=== PATIENT | male | born 1980 | race Caucasian/White ===

== ENCOUNTER 2017-05-14 13:37 | Inpatient (IN) | payer MEDICAID ==
[~2017-05-14] VITALS: Ht 182.9 cm; Wt 110.0 kg
[~2017-05-14 13:37] MED LIST: ATIVAN1 MG PO; BUS10 PO; CLINDAMYCIN HC300 MG PO; LAC PO; LEVAQUIN750 MG PO; PER5 PO; STOOL SOFTENER100 MG PO
[2017-05-14 14:39] LABS: BASOPHIL % 0.6 % (0-2)
[2017-05-14 14:44] LABS: PLATELET COUNT 489 x10^3mcL (130-400)
[2017-05-14 14:54] LABS: CARBON DIOXIDE 21.6 mmol/L (21-32); CHLORIDE SERUM 99 mmol/L (98-107); CREATININE SERUM 0.9 mg/dL (0.7-1.3); GFR1 > 60 mL/min; GLUCOSE SERUM 132 mg/dL (74-106); POTASSIUM SERUM 3.9 mmol/L (3.5-5.1); SODIUM SERUM 139 mmol/L (136-145)
[2017-05-14 14:59] LABS: ALBUMIN 4.5 g/dL (3.4-5.0); ALKALINE PHOSPHATASE 96 U/L (46-116); ALT/SGPT 213 U/L (16-63); AST/SGOT 245 U/L (15-37); BILIRUBIN TOTAL 2.31 mg/dL (0.20-1.00); LIPASE 137 IU/L (73-393)
[2017-05-14 15:00] LABS: TOTAL PROTEIN, SERUM 8.9 g/dL (6.4-8.2)
[2017-05-14 17:58] LABS: AMPHETAMINE QUAL UR NONE DETECTED (NEG <=1000)
[2017-05-14 18:08] LABS: FREE T4 1.17 ng/dL (0.76-1.46)
[2017-05-14 20:32] LABS: MAGNESIUM 2.6 mg/dL (1.8-2.4); PHOSPHOROUS 3.7 mg/dL (2.5-4.9)
[2017-05-14 20:33] LABS: CHOLESTEROL/HDL RATIO 1.6
[2017-05-14 20:43] LABS: CALCIUM 7.3 mg/dL (8.5-10.1); CHLORIDE SERUM 103 mmol/L (98-107); CREATININE SERUM 0.9 mg/dL (0.7-1.3); GFR1 > 60 mL/min; GLUCOSE SERUM 136 mg/dL (74-106); POTASSIUM SERUM 4.5 mmol/L (3.5-5.1); SODIUM SERUM 139 mmol/L (136-145)
[2017-05-14 20:45] VITALS: BP 119/84
[2017-05-14 21:34] LABS: microscopic required? YES
[2017-05-14 21:44] LABS: urine erythrocyte TRACE (NEGATIVE)
[2017-05-15 08:55] LABS: CALCIUM 7.5 mg/dL (8.5-10.1); CARBON DIOXIDE 27.9 mmol/L (21-32); CHLORIDE SERUM 100 mmol/L (98-107); CREATININE SERUM 0.8 mg/dL (0.7-1.3); GFR1 > 60 mL/min; MAGNESIUM 1.9 mg/dL (1.8-2.4); POTASSIUM SERUM 4.1 mmol/L (3.5-5.1); SODIUM SERUM 136 mmol/L (136-145)
[2017-05-15 08:59] LABS: BASOPHIL % 0.2 % (0-2); PLATELET COUNT 285 x10^3mcL (130-400); RED CELL DISTRIBUTION WIDTH 12.5 % (11.5-14.5)
[2017-05-15 11:16] LABS: GLUCOSE SERUM 107 mg/dL (74-106)
[2017-05-15 14:37] VITALS: BP 121/76
[2017-05-15 16:41] VITALS: BP 138/81
[2017-05-15 18:38] VITALS: BP 138/81
[2017-05-15] MEDS ORDERED: ATIVAN1 MG PO (21:40)
== END 2017-05-15 20:24 | disposition home or self-care (01) | DRG 773 ==
LOC: ED 13:37 → DU 19:12
PROVIDERS: Emergency Medicine; ADMIT Family Medicine
DX: F10.229 Alcohol dependence with intoxication, unspecified (principal); F11.23 Opioid dependence with withdrawal; N17.0 Acute kidney failure with tubular necrosis; G92 Toxic encephalopathy; F10.239 Alcohol dependence with withdrawal, unspecified; E86.0 Dehydration; E83.51 Hypocalcemia; E83.41 Hypermagnesemia; R74.0 Nonspecific elevation of levels of transaminase and lactic acid dehydrogenase [LDH]; E78.1 Pure hyperglyceridemia; E66.9 Obesity, unspecified; T51.0X1A Toxic effect of ethanol, accidental (unintentional), initial encounter; Z68.32 Body mass index [BMI] 32.0-32.9, adult; T40.0X5A Adverse effect of opium, initial encounter; Y92.018 Other place in single-family (private) house as the place of occurrence of the external cause
CPT/HCPCS: 84439; 85378; C9113; G0480; J0696; J2060; J2270; J2405; J2543; J3010; J3490; J7030; Q9967

== ENCOUNTER 2017-06-08 17:31 | Emergency (ER) | payer MEDICAID ==
[2017-06-08 19:57] VITALS: BP 135/80
== END 2017-06-08 19:57 | disposition home or self-care (01) ==
LOC: ED 17:31
DX: M54.5 Low back pain (principal); F41.9 Anxiety disorder, unspecified; F10.10 Alcohol abuse, uncomplicated; Z79.891 Long term (current) use of opiate analgesic; Z79.899 Other long term (current) drug therapy
CPT/HCPCS: J2550; J3010

== ENCOUNTER 2017-06-26 12:00 | Inpatient (IN) | payer MEDICAID ==
[~2017-06-26] VITALS: Ht 182.9 cm; Wt 108.9 kg
--- NOTE | 2017-06-26 12:17 | NUR ---
PATIENT BIB [facility] AFTER PATIENT ADMITTED TO [facility] HE WANTED TO DRINK HIMSELF TO . PATIENT DENIES SUICIDAL IDEATION AT THIS TIME AND STATES HE JUST WANTS TO FEEL BETTER. PATIENT ADMITES TO DRINKING LARGE AMOUNT OF BEER EARLY THIS MORNING. PATIENT ALSO C/O RIGHT KNEE PAIN. HE IS A/O X4 JUST SLOW TO RESPOND. ABLE TO FOLLOW COMMANDS. RESPIRATIONS ARE EQUAL AND SMMETRICAL. NO SIGNS OF DISTRESS. GURNEY TO LOWEST POSITION, SIDE RAILS UP AND CALL LIGHT WITHIN REACH. WILL CONTINUE TO MONITOR.
--- NOTE | 2017-06-26 12:22 | NUR ---
DR. RUIZ AT BEDSIDE TO ASSESS PATIENT.
--- NOTE | 2017-06-26 12:43 | NUR ---
PT BELONGINGS IN RADIO ROOM IN A BAG WITH A LABEL
[2017-06-26 12:51] LABS: BASOPHIL % 0.4 % (0-2); RED CELL DISTRIBUTION WIDTH 13.7 % (11.5-14.5)
[2017-06-26 12:58] LABS: PLATELET COUNT 538 x10^3mcL (130-400)
[2017-06-26 13:24] LABS: CALCIUM 8.6 mg/dL (8.5-10.1); CARBON DIOXIDE 28.3 mmol/L (21-32); CHLORIDE SERUM 102 mmol/L (98-107); CREATININE SERUM 0.9 mg/dL (0.7-1.3); GFR1 > 60 mL/min; GLUCOSE SERUM 134 mg/dL (74-106); POTASSIUM SERUM 3.9 mmol/L (3.5-5.1); SODIUM SERUM 140 mmol/L (136-145)
[2017-06-26 13:30] LABS: ALBUMIN 4.3 g/dL (3.4-5.0); ALKALINE PHOSPHATASE 84 U/L (46-116); ALT/SGPT 41 U/L (16-63); AST/SGOT 34 U/L (15-37); BILIRUBIN TOTAL 0.83 mg/dL (0.20-1.00); CHOLESTEROL 227 mg/dL (<200); TOTAL PROTEIN, SERUM 8.9 g/dL (6.4-8.2)
--- NOTE | 2017-06-26 14:48 | NUR ---
PT VERY ANXIOUS, AGITATED, NAUSOUS AND REPORTS PAIN OF 9/10. PT ASKED TO GIVE URINE SAMPLE PRIOR TO ADMIN OF ANY MEDS. PT IS ATTEMPTING TO URINATE NOW
[2017-06-26] MEDS ORDERED: METFORMIN500 M1 PO (14:54)
[2017-06-26] MEDS ORDERED: BUSPIRONE15 M1 PO (14:54)
[2017-06-26] MEDS ORDERED: HYDROXYZINE50 M1 PO (14:55)
--- NOTE | 2017-06-26 15:03 | NUR ---
PT MEDICATED PER MD ORDERS FOR AGITATION
--- NOTE | 2017-06-26 15:15 | NUR ---
PER DR DEMARCO PT OK TO BE TRANSFERED UPSTAIRS WITHOUT URINE.
--- NOTE | 2017-06-26 15:15 | NUR ---
PT MEDICATED PER MD ORDERS FOR PAIN
--- NOTE | 2017-06-26 15:35 | NUR ---
REPORT GIVEN TO FRANTZ ROSARIO FOR ADMISSION TO TELE. ALL QUESTIONS AND CONCERNS ADDRESSED.
[2017-06-26 15:56] LABS: MAGNESIUM 2.7 mg/dL (1.8-2.4); PHOSPHOROUS 3.2 mg/dL (2.5-4.9)
--- NOTE | 2017-06-26 16:00 | NUR ---
CLIENT IS ALERT AND ORIENTED X4. PATIENT IS ANXIOUS, 1 MG ATIVAN PO GIVEN TO REDUCE SYMPTOMS. RIGHT KNEE SWELLING HAS BEEN NOTED AND CLAIMS TO HAVE INJURED IT WHILE WORKING. PT. IS COOPERATIVE AND FRIENDLY TO STAFF. BED ON THE LOWEST POSITION, CALL LIGHT WITHIN REACH, ROOM FREE OF CLUTTER, AND 1:1 SITTER HAS BEEN INDICATED TO ENSURE SAFETY OF STAFF AND HIMSELF.
[2017-06-26 16:01] VITALS: BP 137/85
[2017-06-26 16:06] LABS: FREE T4 0.97 ng/dL (0.76-1.46); FREE THYROXINE INDEX 3.2 ug/dL (1.4-4.5); T4(THYROXINE) 8.6 ug/dL (4.7-13.3)
--- NOTE | 2017-06-26 16:08 | NUR ---
RECEIVED PT FROM ED VIA [facility]. ORIENTED PT TO ROOM AND SURROUNDINGS. IV NOTED TO LAC PATENT ADN INTACT. TELE 18 PLACED ON PT READING NSR. ISNTRUCTED PT ON THE USE OF CALL LIGHT FOR ASSISTANCE .ENDORSED PT TO PRIMARY NURSE ABKAR
[2017-06-26 16:14] LABS: T3 TOTAL 0.78 ng/mL
--- NOTE | 2017-06-26 17:54 | NUR ---
OBSERVED CLIENT EATING AND WATCHING TV COMFORTABLY. 1:1 SITTER AT BEDSIDE. ROOM FREE OF CLUTTER, BED IN THE LOWEST POSITION, AND CALL LIGHT WITHIN REACH TO ENSURE SAFETY.
--- NOTE | 2017-06-26 18:43 | NUR ---
ENTERED PTS ROOM, PT APPEARD AGGITATED, SPEAKING FAST, AND JITTERY. PT BEGAN ASKING FOR ATIVAN. HR ELEVATED. WILL ADMINSTER PRN ATIVAN.
--- NOTE | 2017-06-26 19:30 | NUR ---
PT AWAKE AND ALERT. AOX4. VERBAL WITH CLEAR SPEECH. NO S/S OF RESPIRATORY DISTRESS NOTED ON ROOM AIR. LUNGS CLEAR BILATERALLY, DIMINISHED TO BASES. DENIES ANY SOB. BOWEL SOUNDS ACTIVE. ABD SOFT AND FLAT. SKIN WARM AND DRY. IV TO LEFT AC PATENT AND INTACT. NO S/S OF INFECTION NOTED. IV NS INFUSING WELL. NOTED SWELLING TO RIGHT KNEE. NO PITTING EDEMA NOTED. PULSES PALPABLE. NO S/S OF DISTRESS NOTED AT THIS TIME. CALM AND COOPERATIVE. SCDS IN PLACE. SITTER AT BEDSIDE. CALL LIGHT WITHIN REACH. WILL CONTINUE TO MONITOR.
--- NOTE | 2017-06-26 20:23 | NUR ---
RECEIVED CRITICAL LAB LACTIC ACID 3.1. DR. JONES NOTIFIED AND AWARE.
--- NOTE | 2017-06-26 21:50 | NUR ---
PT C/O 9/10 RIGHT KNEE PAIN. PRN NORCO 7.5 MG PO GIVEN. WILL CONTINUE TO MONITOR.
[2017-06-26 22:48] VITALS: BP 110/77
--- NOTE | 2017-06-26 23:20 | NUR ---
PT STATES STILL HAVING PAIN 8/10 TO RIGHT KNEE. STATES NORCO DIDN'T REALLY HELP. PRN MORPHINE 2 MG IVP GIVEN. CALL LIGHT WITHIN REACH. WILL CONTINUE TO MONITOR.
[2017-06-26 23:54] LABS: UA SPECIFIC GRAVITY 1.025 (1.005-1.035); microscopic required? YES; urine erythrocyte TRACE (NEGATIVE)
[2017-06-27 00:05] LABS: AMPHETAMINE QUAL UR NONE DETECTED (NEG <=1000)
--- NOTE | 2017-06-27 00:40 | NUR ---
PT RESTING IN BED WITH EYES CLOSED. BREATHING EQUAL AND UNLABORED. NO S/S OF RESPIRATORY DISTRESS NOTED. IV PATENT AND INFUSING WELL. RESTING COMFORTABLY WITH RELAXED FACIAL FEATURES. CALL LIGHT WITHIN REACH. SITTER AT BEDSIDE. WILL CONTINUE TO MONITOR.
--- NOTE | 2017-06-27 00:51 | NUR ---
RECEIVE CRITICAL LAB LACTIC ACID 2.4. DR. JONES NOTIFIED AND AWARE.
--- NOTE | 2017-06-27 03:18 | NUR ---
PT AWAKE AND C/O 8/10 PAIN TO RIGHT KNEE. PRN MORPHINE 2 MG IVP GIVEN. SITTER AT BEDSIDE. CALL LIGHT WITHIN REACH. WILL CONTINUE TO MONITOR.
--- NOTE | 2017-06-27 06:14 | NUR ---
PT SLEPT WELL THROUGH THE NIGHT. AWAKE AND ALERT AT THIS TIME. NO S/S OF RESPIRATORY DISTRESS NOTED. PT C/O 8/10 RIGHT KNEE PAIN. PRN NORCO 7.5 MG PO GIVEN. RECEIVED ROUTINE ATIVAN 1 MG PO. IV PATENT AND INFUSING WELL. CALM AND COOPERATIVE AT THIS TIME. CALL LIGHT WITHIN REACH. WILL CONTINUE TO MONITOR.
[2017-06-27 06:15] LABS: BASOPHIL % 0.7 % (0-2); PLATELET COUNT 400 x10^3mcL (130-400); RED CELL DISTRIBUTION WIDTH 13.8 % (11.5-14.5)
[2017-06-27 06:34] LABS: CALCIUM 8.4 mg/dL (8.5-10.1); CARBON DIOXIDE 28.3 mmol/L (21-32); CHLORIDE SERUM 105 mmol/L (98-107); CREATININE SERUM 0.8 mg/dL (0.7-1.3); GFR1 > 60 mL/min; GLUCOSE SERUM 84 mg/dL (74-106); MAGNESIUM 2.4 mg/dL (1.8-2.4); PHOSPHOROUS 3.7 mg/dL (2.5-4.9); POTASSIUM SERUM 4.6 mmol/L (3.5-5.1); SODIUM SERUM 138 mmol/L (136-145)
--- NOTE | 2017-06-27 07:30 | NUR ---
PATIENT RECEIVED AND SEEN. AT THIS TIME THE PATIENT APPEARS CALM. AAOX3. DENIES WANTING TO HURT HIMSELF OR TO HURT OTHERS. PATIENT IV IS INFUSING PER ORDER AT 150CC/HR. PATIENT HAS SOME SWELLING TO HIS RIGHT KNEE, AND BILATERAL ABRASIONS TO THE INSIDE OF BOTH KNEES, WHICH HE STATES ARE FROM GETTING IN AND OUT OF HIS CAR. SITTER IS AT BEDSIDE FOR SAFETY. CALL LIGHT WITHIN REACH. ALL SAFETY MEASURES IN PLACE. WILL CONTINUE TO MONITOR.
[2017-06-27 09:00] VITALS: BP 124/80
--- NOTE | 2017-06-27 14:00 | NUR ---
PATIENT CONTINUES TO REST IN BED. NO SIGNS OF ACUTE DISTRESS ARE NOTED. RESPIRATIONS EVEN AND UNLABORED. CALL LIGHT WITHIN REACH. SITTER AT BEDSIDE FOR SAFETY.
[2017-06-27 14:30] VITALS: BP 156/91
--- NOTE | 2017-06-27 19:20 | NUR ---
PT A/O X4. TELE #18, NSR, DENIES CHEST PAIN. PULSES PALPABLE, NO EDEMA PRESENT. LUNG SOUNDS CTA, BREATHING FREELY ON RA, DENIES SOB. ABD SOFT AND NONDISTENDED, BOWEL SOUNDS ACTIVE, LBM-06/27. PT VOIDS ADEQUATELY VIA URINAL. GENERALIZED WEAKNESS, AND WEAKNESS TO BILATERAL KNEES. MINOR SWELLING NOTED TO RIGHT KNEE. MULTIPLE SMALL ABRASIONS NOTED TO MEDIAL SIDES OF BILATERAL KNEES, COURTNEY, NO BLEEDING OBSERVED. PT ADMITS TO 8/10 KNEE PAIN, WILL ADMINISTER MEDICATION ORDERED PER MAR. IVF INFUSING WELL TO LAC, NS @ 150 ML/HR. PT DENIES SUICIDAL IDEATION; PT DENIES THOUGHTS OF HURTING SELF AND OTHERS. BED IN LOWEST SETTING, SIDE RAILS UP X2, SEIZURE PRECAUTIONS IN PLACE, CALL LIGHT WITHIN REACH. WILL CONTINUE TO MONITOR.
--- NOTE | 2017-06-27 19:30 | NUR ---
REPORT GIVEN TO [facility] NURSE. AT THIS TIME THE PATIENT IS RESTING IN BED. NO SIGNS OF ACUTE DISTRESS ARE NOTED. RESPIRATIONS EVEN AND [id number] ON ROOM AIR. IV INFUSING PER ORDER, PATENT AND WNL. SCDS IN PLACE. CALL LIGHT WITHIN REACH.
--- NOTE | 2017-06-27 20:59 | NUR ---
PT COMPLAINING OF 8/10 BILATERAL KNEE PAIN. ADMINISTERED MORPHINE ORDERED. WILL MONITOR FOR PAIN RELIEF.
[2017-06-27 22:53] VITALS: BP 137/94
--- NOTE | 2017-06-28 02:14 | NUR ---
PT SLEEPING AT THIS TIME AND CAN BE HEARD SNORING. BREATHING IS EVEN AND UNLABORED. NO RESP DISTRESS NOTED, NO SIGNS OF PAIN OBSERVED. IVF INFUSING WELL. WILL CONTINUE TO MONITOR.
--- NOTE | 2017-06-28 04:47 | NUR ---
PT COMPLAINING OF 8/10 PAIN TO RIGHT KNEE. ADMINISTERED MORPHINE ORDERED, WILL MONITOR FOR PAIN RELIEF.
[2017-06-28 05:11] VITALS: BP 142/88
--- NOTE | 2017-06-28 06:10 | NUR ---
PT SLEPT WELL THROUGHOUT THE EVENING. NO DISTRESS OBSERVED, PT REPORTS 6/10 KNEE PAIN AFTER MORPHINE ADMINISTERED. NO SEIZURES NOTED DURING SHIFT; SEIZURE PRECAUTIONS MAINTAINED. IVF INFUSING WELL. WILL ENDORSE CARE TO AM NURSE.
[2017-06-28 06:23] LABS: BASOPHIL % 0.6 % (0-2); PLATELET COUNT 385 x10^3mcL (130-400)
--- NOTE | 2017-06-28 07:30 | NUR ---
PT IS SLEEPING BUT EASILY AROUSABLE TO VERBAL STIMULUS; NO SOB AT RA. OX4. DENIES SUICIDAL IDEATION OR VISUAL/AUDITORY HALLUCINATIONS. IVF ONGOING ORDERED. LAC SITE PATENT AND WITHOUT INFILTRATION. PT IS CALM AND COOPERATIVE AT THIS TIME. FALL AND SAFETY PRECAUTION REINFORCED. WILL CONTINUE TO MONITOR STATUS.
[2017-06-28 10:18] VITALS: BP 129/84
--- NOTE | 2017-06-28 11:50 | NUR ---
0825-PT REPORTS RT KNEE PAIN 8/10 "ACHING"; MORPHINE IV GIVEN ORDERED.
--- NOTE | 2017-06-28 13:51 | NUR ---
REPORTS RT KNEE PAIN IS 8 OR 9 ON THE PAIN SCALE; "ACHING"; NORCO PO PRN ADMINISTERED. WILL CONTINUE TO MONITOR STATUS.
[2017-06-28] MEDS ORDERED: LIPI10 PO (13:57)
[2017-06-28] MEDS ORDERED: ECO81 PO (13:58)
[2017-06-28] MEDS ORDERED: ZES10 PO (14:00)
[2017-06-28] MEDS ORDERED: CEL20 PO (14:01)
[2017-06-28] MEDS ORDERED: COL100 PO (14:06)
[2017-06-28] MEDS ORDERED: FOL1 PO (14:07)
[2017-06-28] MEDS ORDERED: THI100 PO (14:08)
[2017-06-28] MEDS ORDERED: NORCO1 TA2 PO (14:09)
[2017-06-28] MEDS ORDERED: THERAGRAN-M1 TA4 PO (14:09)
[2017-06-28] MEDS ORDERED: ATI1 PO (14:10)
[2017-06-28 14:11] VITALS: BP 131/87
[2017-06-28] MEDS ORDERED: FLO4 PO (14:24)
[2017-06-28 14:57] VITALS: Ht 182.9 cm; Wt 108.9 kg
[2017-06-28] MEDS ORDERED: NORCO1 TA1 PO (15:52)
[2017-06-28 16:32] VITALS: BP 131/87
--- NOTE | 2017-06-28 17:19 | NUR ---
PT LEFT THE UNIT AT THIS TIME ACCOMPANIED BY FAMILY AND SENIOR INFRASTRUCTURE ENGINEER. FOR DC TO HOME PER MD ORDER. PT DC'D HIS OWN IVF ACCESS NO THE LAC; CATH INTACT. DC INSTRUCTIONS GIVEN WITH VERBAL UNDERSTANDING, PRESCRIPTION GIVEN, AND WORK EXCUSE NOTE ALSO GIVEN. NO NEW ACUTE CHANGES.
== END 2017-06-28 17:19 | disposition home or self-care (01) | DRG 816 ==
LOC: ED 12:00 → DU 13:19
PROVIDERS: Specialist; ADMIT Family Medicine
DX: T51.0X2A Toxic effect of ethanol, intentional self-harm, initial encounter (principal); G92 Toxic encephalopathy; E11.51 Type 2 diabetes mellitus with diabetic peripheral angiopathy without gangrene; E83.41 Hypermagnesemia; F10.229 Alcohol dependence with intoxication, unspecified; F10.239 Alcohol dependence with withdrawal, unspecified; N20.0 Calculus of kidney; R31.9 Hematuria, unspecified; E78.5 Hyperlipidemia, unspecified; F32.9 Major depressive disorder, single episode, unspecified; F41.9 Anxiety disorder, unspecified; F17.210 Nicotine dependence, cigarettes, uncomplicated; Z68.32 Body mass index [BMI] 32.0-32.9, adult; Z79.84 Long term (current) use of oral hypoglycemic drugs; Y90.8 Blood alcohol level of 240 mg/100 ml or more; Y92.009 Unspecified place in unspecified non-institutional (private) residence as the place of occurrence of the external cause
CPT/HCPCS: 83880; 84439; G0480; J1885; J2060; J2270; J2405; J3490; J7030; Q0092; Q0177

== ENCOUNTER 2017-07-06 13:28 | Emergency (ER) | payer MEDICAID ==
[~2017-07-06 13:28] MED LIST changes: +ATI1 PO; +BUSPIRONE15 M1 PO; +CEL20 PO; +COL100 PO; +ECO81 PO; +FLO4 PO; +FOL1 PO; +HYDROXYZINE50 M1 PO; +LIPI10 PO; +METFORMIN500 M1 PO; +NORCO1 TA1 PO; +NORCO1 TA2 PO; +THERAGRAN-M1 TA4 PO; +THI100 PO; +ZES10 PO
[2017-07-06 13:31] VITALS: BP 133/81
== END 2017-07-06 14:41 | disposition left against medical advice (07) ==
LOC: ED 13:28
DX: Z53.21 Procedure and treatment not carried out due to patient leaving prior to being seen by health care provider (principal)

== ENCOUNTER 2017-07-08 17:14 | Emergency (ER) | payer MEDICAID ==
[2017-07-08 18:27] LABS: BASOPHIL % 0.7 % (0-2); RED CELL DISTRIBUTION WIDTH 13.4 % (11.5-14.5)
[2017-07-08 18:33] LABS: PLATELET COUNT 452 x10^3mcL (130-400)
[2017-07-08 19:10] LABS: ALBUMIN 3.9 g/dL (3.4-5.0); ALT/SGPT 27 U/L (16-63); AST/SGOT 19 U/L (15-37); CALCIUM 8.4 mg/dL (8.5-10.1); CARBON DIOXIDE 23.7 mmol/L (21-32); CHLORIDE SERUM 107 mmol/L (98-107); CREATININE SERUM 0.7 mg/dL (0.7-1.3); GFR1 > 60 mL/min; GLUCOSE SERUM 108 mg/dL (74-106); LIPASE 391 IU/L (73-393); SODIUM SERUM 142 mmol/L (136-145)
[2017-07-08 19:37] LABS: ALKALINE PHOSPHATASE 77 U/L (46-116); BILIRUBIN TOTAL 0.6 mg/dL (0.20-1.00)
[2017-07-08 20:10] VITALS: BP 103/90
== END 2017-07-08 19:55 | disposition left against medical advice (07) ==
LOC: ED 17:14
PROVIDERS: Emergency Medicine
DX: F10.129 Alcohol abuse with intoxication, unspecified (principal)
CPT/HCPCS: 36415; Q0162

== ENCOUNTER 2017-07-08 20:46 | Emergency (ER) | payer MEDICAID ==
[2017-07-08 21:39] VITALS: BP 134/92
== END 2017-07-09 00:05 | disposition left against medical advice (07) ==
LOC: ED 20:46
DX: Z53.21 Procedure and treatment not carried out due to patient leaving prior to being seen by health care provider (principal)

== ENCOUNTER 2017-07-09 10:20 | Emergency (ER) | payer MEDICAID ==
[~2017-07-09] VITALS: Ht 182.9 cm; Wt 108.5 kg
[2017-07-09 13:02] LABS: BASOPHIL % 0.2 % (0-2); RED CELL DISTRIBUTION WIDTH 13.5 % (11.5-14.5)
[2017-07-09 13:11] LABS: PLATELET COUNT 451 x10^3mcL (130-400)
[2017-07-09 13:12] LABS: CALCIUM 8.6 mg/dL (8.5-10.1); CARBON DIOXIDE 28.6 mmol/L (21-32); CHLORIDE SERUM 103 mmol/L (98-107); GFR1 > 60 mL/min; GLUCOSE SERUM 97 mg/dL (74-106); POTASSIUM SERUM 4.6 mmol/L (3.5-5.1); SODIUM SERUM 139 mmol/L (136-145)
[2017-07-09 13:17] LABS: ALBUMIN 3.9 g/dL (3.4-5.0); ALKALINE PHOSPHATASE 66 U/L (46-116); ALT/SGPT 29 U/L (16-63); AST/SGOT 22 U/L (15-37); BILIRUBIN TOTAL 1.37 mg/dL (0.20-1.00); LIPASE 112 IU/L (73-393); TOTAL PROTEIN, SERUM 7.7 g/dL (6.4-8.2)
[2017-07-09 16:00] VITALS: BP 114/84
== END 2017-07-09 16:00 | disposition home or self-care (01) ==
LOC: ED 10:20
PROVIDERS: Emergency Medicine
DX: R10.32 Left lower quadrant pain (principal); F10.129 Alcohol abuse with intoxication, unspecified
CPT/HCPCS: J1885; J2060; J2405; J3411; J3475; J3490; J7030

== ENCOUNTER 2017-07-23 14:12 | Inpatient (IN) | payer MEDICAID ==
[~2017-07-23] VITALS: Ht 182.9 cm; Wt 104.3 kg
[2017-07-23 15:01] LABS: BASOPHIL % 0.6 % (0-2); RED CELL DISTRIBUTION WIDTH 13.2 % (11.5-14.5)
[2017-07-23 15:02] LABS: PLATELET COUNT 495 x10^3mcL (130-400)
[2017-07-23 15:07] LABS: CALCIUM 8.9 mg/dL (8.5-10.1); CARBON DIOXIDE 26.6 mmol/L (21-32); CHLORIDE SERUM 97 mmol/L (98-107); CREATININE SERUM 0.9 mg/dL (0.7-1.3); GFR1 > 60 mL/min; GLUCOSE SERUM 95 mg/dL (74-106); POTASSIUM SERUM 3.2 mmol/L (3.5-5.1); SODIUM SERUM 138 mmol/L (136-145)
[2017-07-23 15:12] LABS: ALBUMIN 4.3 g/dL (3.4-5.0); ALKALINE PHOSPHATASE 75 U/L (46-116); ALT/SGPT 32 U/L (16-63); AST/SGOT 21 U/L (15-37); BILIRUBIN TOTAL 1.2 mg/dL (0.20-1.00)
[2017-07-23 15:13] LABS: TOTAL PROTEIN, SERUM 8.8 g/dL (6.4-8.2)
[2017-07-23 20:19] LABS: AMPHETAMINE QUAL UR NONE DETECTED (NEG <=1000)
[2017-07-24 10:57] LABS: FREE T4 0.81 ng/dL (0.76-1.46); FREE THYROXINE INDEX 2.4 ug/dL (1.4-4.5); T4(THYROXINE) 6.7 ug/dL (4.7-13.3)
[2017-07-24 11:04] LABS: T3 TOTAL 0.81 ng/mL
[2017-07-24 11:20] LABS: CHOLESTEROL/HDL RATIO 3.8; MAGNESIUM 2.1 mg/dL (1.8-2.4); PHOSPHOROUS 3.5 mg/dL (2.5-4.9)
[2017-07-24 13:30] VITALS: BP 119/67
[2017-07-24 14:16] VITALS: BP 126/85
[2017-07-24 16:35] VITALS: BP 120/81
[2017-07-24 19:08] LABS: microscopic required? YES; urine erythrocyte NEGATIVE (NEGATIVE)
[2017-07-24 20:00] VITALS: BP 132/90
[2017-07-25 05:53] VITALS: BP 127/86
[2017-07-25 06:45] LABS: BASOPHIL % 0.6 % (0-2); PLATELET COUNT 307 x10^3mcL (130-400); RED CELL DISTRIBUTION WIDTH 13.5 % (11.5-14.5)
[2017-07-25 06:57] LABS: CALCIUM 8.6 mg/dL (8.5-10.1); CARBON DIOXIDE 28.5 mmol/L (21-32); CHLORIDE SERUM 104 mmol/L (98-107); CREATININE SERUM 0.9 mg/dL (0.7-1.3); GFR1 > 60 mL/min; GLUCOSE SERUM 97 mg/dL (74-106); MAGNESIUM 2.2 mg/dL (1.8-2.4); PHOSPHOROUS 4.4 mg/dL (2.5-4.9); POTASSIUM SERUM 4.4 mmol/L (3.5-5.1); SODIUM SERUM 138 mmol/L (136-145)
[2017-07-25 07:52] VITALS: BP 126/85
[2017-07-25 07:54] VITALS: BP 101/63
[2017-07-25 09:33] VITALS: BP 126/85
[2017-07-25 17:40] VITALS: BP 124/74
[2017-07-25 20:05] VITALS: BP 111/78
[2017-07-26 05:43] VITALS: BP 103/68
[2017-07-26 06:25] LABS: BASOPHIL % 0.7 % (0-2); PLATELET COUNT 290 x10^3mcL (130-400); RED CELL DISTRIBUTION WIDTH 13.2 % (11.5-14.5)
[2017-07-26 06:31] LABS: CALCIUM 8.3 mg/dL (8.5-10.1); CARBON DIOXIDE 28.3 mmol/L (21-32); CHLORIDE SERUM 106 mmol/L (98-107); CREATININE SERUM 0.8 mg/dL (0.7-1.3); GFR1 > 60 mL/min; GLUCOSE SERUM 96 mg/dL (74-106); MAGNESIUM 2.1 mg/dL (1.8-2.4); PHOSPHOROUS 4.3 mg/dL (2.5-4.9); SODIUM SERUM 140 mmol/L (136-145)
[2017-07-26 08:05] VITALS: BP 118/80
[2017-07-26 10:36] VITALS: Ht 182.9 cm; Wt 104.3 kg
[2017-07-26] MEDS ORDERED: ATI1 PO (12:19)
[2017-07-26] MEDS ORDERED: NIC14 TD (12:20)
[2017-07-26] MEDS ORDERED: NORCO1 TA2 PO (12:21)
[2017-07-26 15:00] VITALS: BP 120/70
== END 2017-07-26 17:19 | disposition home or self-care (01) | DRG 751 ==
LOC: ED 14:12 → DU 07-24 09:55 → MU 07-26 09:28
PROVIDERS: Emergency Medicine; Family Medicine Sports Medicine; ADMIT Family Medicine
DX: F33.2 Major depressive disorder, recurrent severe without psychotic features (principal); N17.0 Acute kidney failure with tubular necrosis; G92 Toxic encephalopathy; D68.69 Other thrombophilia; E11.51 Type 2 diabetes mellitus with diabetic peripheral angiopathy without gangrene; E83.51 Hypocalcemia; F10.239 Alcohol dependence with withdrawal, unspecified; F10.229 Alcohol dependence with intoxication, unspecified; F43.0 Acute stress reaction; R45.851 Suicidal ideations; M25.561 Pain in right knee; R80.9 Proteinuria, unspecified; E87.6 Hypokalemia; F17.210 Nicotine dependence, cigarettes, uncomplicated; Z68.31 Body mass index [BMI] 31.0-31.9, adult; Z79.84 Long term (current) use of oral hypoglycemic drugs
CPT/HCPCS: 82962; 83880; 84439; 90658; G0480; J2060; J2270; J2405; J2550; J3411; J3480; J7030; Q0092

== ENCOUNTER 2017-07-30 00:29 | Emergency (ER) | payer MEDICAID ==
[~2017-07-30] VITALS: Ht 175.3 cm; Wt 104.3 kg
[~2017-07-30 00:29] MED LIST changes: +NIC14 TD
[2017-07-30 10:09] VITALS: BP 139/78
== END 2017-07-30 10:09 | disposition home or self-care (01) ==
LOC: ED 00:29
DX: F10.129 Alcohol abuse with intoxication, unspecified (principal); F41.9 Anxiety disorder, unspecified
CPT/HCPCS: J2405; J3486; J7030

== ENCOUNTER 2017-08-06 15:46 | Inpatient (IN) | payer MEDICAID ==
[~2017-08-06] VITALS: Ht 182.9 cm; Wt 110.7 kg
[2017-08-06] MEDS ORDERED: LEXAPRO5 M1 (17:30)
[2017-08-06 17:50] LABS: BASOPHIL % 0.6 % (0-2); PLATELET COUNT 336 x10^3mcL (130-400); RED CELL DISTRIBUTION WIDTH 13.1 % (11.5-14.5)
[2017-08-06 18:06] LABS: ALKALINE PHOSPHATASE 69 U/L (46-116); ALT/SGPT 64 U/L (16-63); BILIRUBIN TOTAL 2.18 mg/dL (0.20-1.00); CARBON DIOXIDE 23.6 mmol/L (21-32); CHLORIDE SERUM 105 mmol/L (98-107); POTASSIUM SERUM 3.9 mmol/L (3.5-5.1); SODIUM SERUM 139 mmol/L (136-145); TOTAL PROTEIN, SERUM 7.1 g/dL (6.4-8.2)
[2017-08-06 18:48] VITALS: BP 124/84
[2017-08-06 18:48] LABS: ALBUMIN 3.4 g/dL (3.4-5.0); CALCIUM 8.1 mg/dL (8.5-10.1); CREATININE SERUM 0.8 mg/dL (0.7-1.3); GFR1 > 60 mL/min
[2017-08-06 18:51] LABS: GLUCOSE SERUM 114 mg/dL (74-106)
[2017-08-06 18:53] VITALS: Ht 182.9 cm; Wt 110.7 kg
[2017-08-06 20:16] LABS: AST/SGOT 40 U/L (15-37)
[2017-08-06 20:27] LABS: AMYLASE 50 U/L (25-115); LIPASE 175 IU/L (73-393); MAGNESIUM 2.2 mg/dL (1.8-2.4); PHOSPHOROUS 3.2 mg/dL (2.5-4.9)
[2017-08-06 20:39] LABS: FREE THYROXINE INDEX 2.8 ug/dL (1.4-4.5); T4(THYROXINE) 7.4 ug/dL (4.7-13.3)
[2017-08-06 21:41] VITALS: BP 120/75
[2017-08-06 22:04] LABS: TRIGLYCERIDES 612 mg/dL (<150)
[2017-08-06 22:05] LABS: CHOLESTEROL 144 mg/dL (<200); CHOLESTEROL/HDL RATIO 4.5; HDL CHOLESTEROL 32 mg/dL (40-60)
[2017-08-06 22:41] LABS: T3 TOTAL 0.85 ng/mL
[2017-08-07 05:19] VITALS: BP 148/72
[2017-08-07 06:28] LABS: CARBON DIOXIDE 29.2 mmol/L (21-32); CHLORIDE SERUM 105 mmol/L (98-107); GFR1 > 60 mL/min; GLUCOSE SERUM 87 mg/dL (74-106); MAGNESIUM 2.3 mg/dL (1.8-2.4); PHOSPHOROUS 5.3 mg/dL (2.5-4.9); POTASSIUM SERUM 4.7 mmol/L (3.5-5.1); SODIUM SERUM 140 mmol/L (136-145)
[2017-08-07 06:31] LABS: BASOPHIL % 0.5 % (0-2); PLATELET COUNT 280 x10^3mcL (130-400); RED CELL DISTRIBUTION WIDTH 13.2 % (11.5-14.5)
[2017-08-07 09:05] VITALS: BP 131/90
[2017-08-07 12:14] VITALS: BP 149/97
[2017-08-07 17:32] VITALS: BP 147/100
[2017-08-07 20:46] LABS: microscopic required? NO
[2017-08-07 20:50] LABS: UA SPECIFIC GRAVITY 1.015 (1.005-1.035); urine erythrocyte NEGATIVE (NEGATIVE)
[2017-08-07 20:59] LABS: AMPHETAMINE QUAL UR NONE DETECTED (NEG <=1000)
[2017-08-07 21:45] VITALS: BP 103/71
[2017-08-07 21:56] VITALS: BP 145/99
[2017-08-08 05:36] VITALS: BP 120/85
[2017-08-08 06:03] LABS: BASOPHIL % 0.3 % (0-2); PLATELET COUNT 254 x10^3mcL (130-400)
[2017-08-08 06:36] LABS: CALCIUM 8.2 mg/dL (8.5-10.1); CARBON DIOXIDE 26.6 mmol/L (21-32); CHLORIDE SERUM 104 mmol/L (98-107); CREATININE SERUM 0.9 mg/dL (0.7-1.3); GFR1 > 60 mL/min; GLUCOSE SERUM 95 mg/dL (74-106); PHOSPHOROUS 4.8 mg/dL (2.5-4.9); POTASSIUM SERUM 3.9 mmol/L (3.5-5.1); SODIUM SERUM 139 mmol/L (136-145)
[2017-08-08 09:36] VITALS: BP 141/91
[2017-08-08] MEDS ORDERED: VIC PO (12:02)
[2017-08-08] MEDS ORDERED: COLACE CLEAR50 MG PO (12:04)
[2017-08-08] MEDS ORDERED: ATIVAN1 MG PO (12:05)
[2017-08-08] MEDS ORDERED: ZOFI IV (12:07)
[2017-08-08] MEDS ORDERED: THI100 PO (12:08)
[2017-08-08] MEDS ORDERED: FOL1 PO (12:08)
[2017-08-08 12:42] VITALS: BP 129/84
[2017-08-08 13:03] VITALS: BP 141/91
[2017-08-08] MEDS ORDERED: ZOF4 PO (13:24)
== END 2017-08-08 14:08 | disposition home or self-care (01) | DRG 775 ==
LOC: ED 15:46 → DU 17:01
PROVIDERS: Specialist; ADMIT Family Medicine Sports Medicine
DX: F10.229 Alcohol dependence with intoxication, unspecified (principal); F10.239 Alcohol dependence with withdrawal, unspecified; N17.0 Acute kidney failure with tubular necrosis; G92 Toxic encephalopathy; R45.851 Suicidal ideations; E83.51 Hypocalcemia; E78.5 Hyperlipidemia, unspecified; E83.39 Other disorders of phosphorus metabolism; F41.1 Generalized anxiety disorder; E80.6 Other disorders of bilirubin metabolism; Z79.82 Long term (current) use of aspirin; Z68.33 Body mass index [BMI] 33.0-33.9, adult; Z79.84 Long term (current) use of oral hypoglycemic drugs; F17.210 Nicotine dependence, cigarettes, uncomplicated; I70.209 Unspecified atherosclerosis of native arteries of extremities, unspecified extremity; T51.0X2D Toxic effect of ethanol, intentional self-harm, subsequent encounter; I70.203 Unspecified atherosclerosis of native arteries of extremities, bilateral legs
CPT/HCPCS: 82962; 83880; 84439; G0378; G0480; J0696; J2060; J2405; J3411; J3475; J3490; J7030; Q0092

== ENCOUNTER 2017-08-15 19:06 | Emergency (ER) | payer MEDICAID ==
[~2017-08-15] VITALS: Ht 182.9 cm; Wt 104.3 kg
[~2017-08-15 19:06] MED LIST changes: +COLACE CLEAR50 MG PO; +LEXAPRO5 M1; +VIC PO; +ZOF4 PO; +ZOFI IV
[2017-08-15 20:55] VITALS: BP 140/97
== END 2017-08-15 20:55 | disposition home or self-care (01) ==
LOC: ED 19:06
DX: F10.129 Alcohol abuse with intoxication, unspecified (principal)
CPT/HCPCS: J2060; Q0162

== ENCOUNTER 2017-08-24 23:26 | Emergency (ER) | payer MEDICAID ==
[2017-08-24 23:47] LABS: BASOPHIL % 0.5 % (0-2); PLATELET COUNT 381 x10^3mcL (130-400); RED CELL DISTRIBUTION WIDTH 14.1 % (11.5-14.5)
[2017-08-25 00:18] LABS: ALBUMIN 3.6 g/dL (3.4-5.0); ALKALINE PHOSPHATASE 64 U/L (46-116); ALT/SGPT 90 U/L (16-63); AST/SGOT 36 U/L (15-37); BILIRUBIN TOTAL 0.3 mg/dL (0.20-1.00); CALCIUM 8.5 mg/dL (8.5-10.1); CARBON DIOXIDE 30.4 mmol/L (21-32); CHLORIDE SERUM 105 mmol/L (98-107); CREATININE SERUM 1.1 mg/dL (0.7-1.3); GFR1 > 60 mL/min; GLUCOSE SERUM 127 mg/dL (74-106); LIPASE 199 IU/L (73-393); POTASSIUM SERUM 3.3 mmol/L (3.5-5.1); SODIUM SERUM 144 mmol/L (136-145); TOTAL PROTEIN, SERUM 7.5 g/dL (6.4-8.2)
[2017-08-25 11:13] VITALS: BP 112/65
== END 2017-08-25 11:13 | disposition home or self-care (01) ==
LOC: ED 23:26
PROVIDERS: Emergency Medicine
DX: T51.91XA Toxic effect of unspecified alcohol, accidental (unintentional), initial encounter (principal); R41.82 Altered mental status, unspecified; Y92.89 Other specified places as the place of occurrence of the external cause
CPT/HCPCS: G0480; J2060; J2405; J7030; Q0092

== ENCOUNTER 2017-08-28 01:36 | Emergency (ER) | payer MEDICAID ==
[~2017-08-28] VITALS: Ht 182.9 cm; Wt 81.6 kg
[2017-08-28 05:46] VITALS: BP 135/72
== END 2017-08-28 05:47 | disposition home or self-care (01) ==
LOC: ED 01:36
DX: F10.129 Alcohol abuse with intoxication, unspecified (principal); F41.9 Anxiety disorder, unspecified
CPT/HCPCS: Q0092

== ENCOUNTER 2017-08-31 02:47 | Inpatient (IN) | payer MEDICAID ==
[~2017-08-31] VITALS: Ht 182.9 cm; Wt 109.3 kg
[2017-08-31 04:59] LABS: BASOPHIL % 0.6 % (0-2); PLATELET COUNT 366 x10^3mcL (130-400); RED CELL DISTRIBUTION WIDTH 13.6 % (11.5-14.5)
[2017-08-31 05:01] LABS: CALCIUM 7.4 mg/dL (8.5-10.1); CARBON DIOXIDE 29.6 mmol/L (21-32); CHLORIDE SERUM 104 mmol/L (98-107); CREATININE SERUM 0.8 mg/dL (0.7-1.3); GFR1 > 60 mL/min; GLUCOSE SERUM 163 mg/dL (74-106); POTASSIUM SERUM 3.5 mmol/L (3.5-5.1); SODIUM SERUM 143 mmol/L (136-145)
[2017-08-31 05:07] LABS: ALKALINE PHOSPHATASE 98 U/L (46-116); ALT/SGPT 388 U/L (16-63); AST/SGOT 132 U/L (15-37); BILIRUBIN TOTAL 1.3 mg/dL (0.20-1.00); TOTAL PROTEIN, SERUM 6.9 g/dL (6.4-8.2)
[2017-08-31 05:09] LABS: ALBUMIN 3.2 g/dL (3.4-5.0)
[2017-08-31 10:59] LABS: microscopic required? NO
[2017-08-31 11:13] VITALS: BP 125/86
[2017-08-31 11:15] VITALS: BP 143/94
[2017-08-31 11:40] LABS: AMYLASE 43 U/L (25-115); LIPASE 139 IU/L (73-393); MAGNESIUM 2.2 mg/dL (1.8-2.4); PHOSPHOROUS 3.6 mg/dL (2.5-4.9)
[2017-08-31 11:43] LABS: CHOLESTEROL 227 mg/dL (<200); CHOLESTEROL/HDL RATIO 11.4; HDL CHOLESTEROL 20 mg/dL (40-60); TRIGLYCERIDES 1471 mg/dL (<150)
[2017-08-31 11:47] LABS: urine erythrocyte NEGATIVE (NEGATIVE)
[2017-08-31 12:01] LABS: AMPHETAMINE QUAL UR POSITIVE (NEG <=1000)
[2017-08-31 18:04] VITALS: BP 133/76
[2017-09-01 06:26] VITALS: BP 125/66
[2017-09-01 06:29] VITALS: BP 138/87
[2017-09-01 06:36] LABS: BASOPHIL % 0.8 % (0-2); PLATELET COUNT 220 x10^3mcL (130-400)
[2017-09-01 06:46] LABS: CALCIUM 7.2 mg/dL (8.5-10.1); CARBON DIOXIDE 27.7 mmol/L (21-32); CHLORIDE SERUM 104 mmol/L (98-107); CREATININE SERUM 0.9 mg/dL (0.7-1.3); GFR1 > 60 mL/min; GLUCOSE SERUM 90 mg/dL (74-106); POTASSIUM SERUM 4.4 mmol/L (3.5-5.1); SODIUM SERUM 139 mmol/L (136-145)
[2017-09-01 08:30] VITALS: BP 138/90
[2017-09-01 14:11] VITALS: BP 140/100
[2017-09-01 17:44] VITALS: BP 146/95
[2017-09-01 20:50] VITALS: BP 138/93
[2017-09-02 05:39] VITALS: BP 129/79
[2017-09-02 06:53] LABS: CALCIUM 7.9 mg/dL (8.5-10.1); CARBON DIOXIDE 28.3 mmol/L (21-32); CHLORIDE SERUM 105 mmol/L (98-107); GFR1 > 60 mL/min; GLUCOSE SERUM 101 mg/dL (74-106); MAGNESIUM 1.8 mg/dL (1.8-2.4); PHOSPHOROUS 3.5 mg/dL (2.5-4.9); POTASSIUM SERUM 3.9 mmol/L (3.5-5.1); SODIUM SERUM 139 mmol/L (136-145)
[2017-09-02 09:01] VITALS: BP 157/87
[2017-09-02] MEDS ORDERED: NOR10T PO (12:36)
[2017-09-02] MEDS ORDERED: CEL20 PO (12:54)
[2017-09-02 14:00] VITALS: BP 142/76
== END 2017-09-02 15:02 | disposition home or self-care (01) | DRG 775 ==
LOC: ED 02:47 → DU 09:44 → MU 09-01 12:00
PROVIDERS: Emergency Medicine; ADMIT Family Medicine
DX: F10.239 Alcohol dependence with withdrawal, unspecified (principal); G92 Toxic encephalopathy; E44.0 Moderate protein-calorie malnutrition; T51.0X1A Toxic effect of ethanol, accidental (unintentional), initial encounter; S62.524A Nondisplaced fracture of distal phalanx of right thumb, initial encounter for closed fracture; G25.2 Other specified forms of tremor; K70.0 Alcoholic fatty liver; F10.229 Alcohol dependence with intoxication, unspecified; R73.03 Prediabetes; E78.2 Mixed hyperlipidemia; F15.10 Other stimulant abuse, uncomplicated; F17.210 Nicotine dependence, cigarettes, uncomplicated; Z68.32 Body mass index [BMI] 32.0-32.9, adult; Z79.82 Long term (current) use of aspirin; Z79.84 Long term (current) use of oral hypoglycemic drugs; Y90.6 Blood alcohol level of 120-199 mg/100 ml; V19.88XA Pedal cyclist (driver) (passenger) injured in other specified transport accidents, initial encounter; Y92.488 Other paved roadways as the place of occurrence of the external cause
CPT/HCPCS: 82962; A4570; G0480; J1885; J2405; J3411; J3475; J3490; J7030; Q0092

== ENCOUNTER 2017-09-14 18:33 | Emergency (ER) | payer OTHER ==
[~2017-09-14] VITALS: Ht 170.2 cm; Wt 68.0 kg
[~2017-09-14 18:33] MED LIST changes: +NOR10T PO
[2017-09-14 18:55] VITALS: Ht 170.2 cm; Wt 68.0 kg
[2017-09-15 10:00] VITALS: BP 128/76
== END 2017-09-15 10:00 | disposition home or self-care (01) ==
LOC: ED 18:33
DX: F10.129 Alcohol abuse with intoxication, unspecified (principal)
CPT/HCPCS: J2405

== ENCOUNTER 2017-09-17 13:37 | Emergency (ER) | payer OTHER ==
[2017-09-17 14:50] VITALS: BP 135/84
== END 2017-09-17 14:50 | disposition home or self-care (01) ==
LOC: ED 13:37
DX: F10.129 Alcohol abuse with intoxication, unspecified (principal); Z88.8 Allergy status to other drugs, medicaments and biological substances

== ENCOUNTER 2017-09-19 12:28 | Emergency (ER) | payer OTHER ==
[2017-09-19 20:16] VITALS: BP 124/66
== END 2017-09-19 20:16 | disposition home or self-care (01) ==
LOC: ED 12:28
DX: F10.129 Alcohol abuse with intoxication, unspecified (principal); E11.9 Type 2 diabetes mellitus without complications; Z88.8 Allergy status to other drugs, medicaments and biological substances

== ENCOUNTER 2017-09-21 23:51 | Inpatient (IN) | payer OTHER ==
[~2017-09-21] VITALS: Ht 182.9 cm; Wt 107.3 kg
[2017-09-21 23:58] VITALS: Ht 182.9 cm; Wt 107.3 kg
[2017-09-22 01:42] LABS: RED CELL DISTRIBUTION WIDTH 14.5 % (11.5-14.5)
[2017-09-22 01:45] LABS: PLATELET COUNT 498 x10^3mcL (130-400)
[2017-09-22 02:05] LABS: CALCIUM 7.9 mg/dL (8.5-10.1); CARBON DIOXIDE 18.2 mmol/L (21-32); CHLORIDE SERUM 98 mmol/L (98-107); CREATININE SERUM 0.9 mg/dL (0.7-1.3); GFR1 > 60 mL/min; GLUCOSE SERUM 101 mg/dL (74-106); POTASSIUM SERUM 3.8 mmol/L (3.5-5.1); SODIUM SERUM 141 mmol/L (136-145)
[2017-09-22 02:07] LABS: UA SPECIFIC GRAVITY 1.025 (1.005-1.035); microscopic required? YES; urine erythrocyte TRACE (NEGATIVE)
[2017-09-22 02:17] LABS: ALBUMIN 4.1 g/dL (3.4-5.0); ALKALINE PHOSPHATASE 96 U/L (46-116); ALT/SGPT 207 U/L (16-63); AST/SGOT 255 U/L (15-37); BILIRUBIN TOTAL 2.94 mg/dL (0.20-1.00); LIPASE 190 IU/L (73-393); MAGNESIUM 1.8 mg/dL (1.8-2.4); TOTAL PROTEIN, SERUM 7.9 g/dL (6.4-8.2)
[2017-09-22 02:27] LABS: AMPHETAMINE QUAL UR NONE DETECTED (NEG <=1000)
[2017-09-22 04:03] LABS: AMYLASE 51 U/L (25-115); CHOLESTEROL 182 mg/dL (<200); PHOSPHOROUS 3.8 mg/dL (2.5-4.9)
[2017-09-22 04:07] LABS: T3 TOTAL 0.74 ng/mL
[2017-09-22 04:21] LABS: CHOLESTEROL/HDL RATIO 6.3; HDL CHOLESTEROL 29 mg/dL (40-60); TRIGLYCERIDES 858 mg/dL (<150)
[2017-09-22 04:51] LABS: FREE T4 1.46 ng/dL (0.76-1.46); T4(THYROXINE) 7.7 ug/dL (4.7-13.3)
[2017-09-22 10:00] VITALS: BP 125/81
[2017-09-22 10:32] VITALS: BP 125/81
[2017-09-22 14:00] VITALS: BP 1580/90
[2017-09-22 18:00] VITALS: BP 140/86
[2017-09-23 05:52] VITALS: BP 135/92
[2017-09-23 07:16] LABS: BASOPHIL % 0.7 % (0-2); PLATELET COUNT 233 x10^3mcL (130-400); RED CELL DISTRIBUTION WIDTH 13.1 % (11.5-14.5)
[2017-09-23 07:36] LABS: CALCIUM 7.2 mg/dL (8.5-10.1); CARBON DIOXIDE 25.4 mmol/L (21-32); CHLORIDE SERUM 101 mmol/L (98-107); CREATININE SERUM 0.8 mg/dL (0.7-1.3); GFR1 > 60 mL/min; GLUCOSE SERUM 82 mg/dL (74-106); MAGNESIUM 1.8 mg/dL (1.8-2.4); PHOSPHOROUS 2.3 mg/dL (2.5-4.9); POTASSIUM SERUM 3.5 mmol/L (3.5-5.1); SODIUM SERUM 137 mmol/L (136-145)
[2017-09-23 08:51] VITALS: BP 140/86
[2017-09-23 14:00] VITALS: BP 131/95
[2017-09-23 18:09] VITALS: BP 120/84
[2017-09-23 21:22] VITALS: BP 133/94
[2017-09-24 07:35] LABS: BASOPHIL % 0.7 % (0-2); PLATELET COUNT 189 x10^3mcL (130-400); RED CELL DISTRIBUTION WIDTH 13.8 % (11.5-14.5)
[2017-09-24 10:21] VITALS: BP 114/78
[2017-09-24 20:56] VITALS: BP 119/79
[2017-09-25 06:55] VITALS: BP 138/103
[2017-09-25 10:15] VITALS: BP 138/98
[2017-09-25 13:40] VITALS: BP 138/98
[2017-09-25 18:16] VITALS: BP 143/101
[2017-09-25 19:56] VITALS: BP 138/93
[2017-09-26 05:18] VITALS: BP 148/96
[2017-09-26 08:37] VITALS: BP 148/98
[2017-09-26 08:47] VITALS: BP 148/98
[2017-09-26 20:45] VITALS: BP 148/96
[2017-09-27 05:44] VITALS: BP 103/66
[2017-09-27 09:09] VITALS: BP 129/79
[2017-09-27 17:33] VITALS: BP 133/88
[2017-09-27 21:31] VITALS: BP 131/88
[2017-09-28 06:07] VITALS: BP 148/99
[2017-09-28 09:31] VITALS: BP 138/89
[2017-09-28 17:00] VITALS: BP 128/89
[2017-09-28 21:25] VITALS: BP 146/91
[2017-09-29 06:27] VITALS: BP 134/91
[2017-09-29 10:04] VITALS: BP 134/87
[2017-09-29 18:06] VITALS: BP 136/93
[2017-09-29 21:06] VITALS: BP 124/79
[2017-09-30 05:19] VITALS: BP 127/92
[2017-09-30 06:45] LABS: BASOPHIL % 0.6 % (0-2); PLATELET COUNT 280 x10^3mcL (130-400); RED CELL DISTRIBUTION WIDTH 14.2 % (11.5-14.5)
[2017-09-30 07:05] LABS: ALBUMIN 3.5 g/dL (3.4-5.0); ALKALINE PHOSPHATASE 52 U/L (46-116); ALT/SGPT 89 U/L (16-63); AST/SGOT 43 U/L (15-37); BILIRUBIN DIRECT 0.19 mg/dL (0.0-0.2); BILIRUBIN TOTAL 0.4 mg/dL (0.20-1.00); CALCIUM 8.7 mg/dL (8.5-10.1); CARBON DIOXIDE 28.3 mmol/L (21-32); CHLORIDE SERUM 103 mmol/L (98-107); CREATININE SERUM 0.9 mg/dL (0.7-1.3); GFR1 > 60 mL/min; GLUCOSE SERUM 73 mg/dL (74-106); MAGNESIUM 2.1 mg/dL (1.8-2.4); PHOSPHOROUS 4.3 mg/dL (2.5-4.9); POTASSIUM SERUM 3.5 mmol/L (3.5-5.1); SODIUM SERUM 141 mmol/L (136-145); TOTAL PROTEIN, SERUM 7.1 g/dL (6.4-8.2)
[2017-09-30 08:57] VITALS: BP 109/79
[2017-09-30 18:00] VITALS: BP 1144/99
[2017-09-30 21:13] VITALS: BP 130/82
[2017-10-01 04:46] VITALS: BP 122/66
[2017-10-01 09:49] VITALS: BP 137/86
[2017-10-01] MEDS ORDERED: ATIVAN1 MG PO (16:42)
[2017-10-01] MEDS ORDERED: ABILIFY5 M1 PO (16:42)
[2017-10-01 16:54] VITALS: BP 137/86
[2017-10-01 17:08] VITALS: BP 129/87
== END 2017-10-01 18:20 | disposition home or self-care (01) | DRG 775 ==
LOC: ED 23:51 → DU 09-22 02:58 → MU 09-22 08:30 → DU 09-22 08:30 → MU 09-24 13:47
PROVIDERS: Emergency Medicine; Family Medicine; Family Medicine Sports Medicine; Student in an Organized Health Care Education/Training Program
DX: F10.129 Alcohol abuse with intoxication, unspecified (principal); N17.0 Acute kidney failure with tubular necrosis; G92 Toxic encephalopathy; F33.2 Major depressive disorder, recurrent severe without psychotic features; R45.851 Suicidal ideations; E83.39 Other disorders of phosphorus metabolism; E11.9 Type 2 diabetes mellitus without complications; D64.9 Anemia, unspecified; E78.1 Pure hyperglyceridemia; R80.9 Proteinuria, unspecified; R74.0 Nonspecific elevation of levels of transaminase and lactic acid dehydrogenase [LDH]; E80.6 Other disorders of bilirubin metabolism; I70.203 Unspecified atherosclerosis of native arteries of extremities, bilateral legs; F41.9 Anxiety disorder, unspecified; F17.200 Nicotine dependence, unspecified, uncomplicated; E66.9 Obesity, unspecified; Z68.32 Body mass index [BMI] 32.0-32.9, adult
CPT/HCPCS: 76770; 82962; 83880; 84439; G0480; J1200; J1885; J2060; J2405; J2543; J2800; J3411; J3475; J3490; J7030; J7050; Q0092; Q0163

== ENCOUNTER 2017-10-07 14:08 | Emergency (ER) | payer OTHER ==
[~2017-10-07] VITALS: Ht 182.9 cm; Wt 108.9 kg
[~2017-10-07 14:08] MED LIST changes: +ABILIFY5 M1 PO
[2017-10-07 14:32] VITALS: Ht 182.9 cm; Wt 108.9 kg
[2017-10-07 15:54] LABS: CALCIUM 8.8 mg/dL (8.5-10.1); CARBON DIOXIDE 27.4 mmol/L (21-32); CHLORIDE SERUM 110 mmol/L (98-107); CREATININE SERUM 0.9 mg/dL (0.7-1.3); GFR1 > 60 mL/min; GLUCOSE SERUM 108 mg/dL (74-106); POTASSIUM SERUM 3.9 mmol/L (3.5-5.1); SODIUM SERUM 146 mmol/L (136-145)
[2017-10-07 15:59] LABS: ALBUMIN 4.1 g/dL (3.4-5.0); ALKALINE PHOSPHATASE 58 U/L (46-116); ALT/SGPT 40 U/L (16-63); AST/SGOT 19 U/L (15-37); LIPASE 205 IU/L (73-393); TOTAL PROTEIN, SERUM 7.7 g/dL (6.4-8.2)
[2017-10-07 16:05] LABS: BASOPHIL % 1.6 % (0-2); PLATELET COUNT 576 x10^3mcL (130-400)
[2017-10-08 06:08] VITALS: BP 140/86
== END 2017-10-08 06:08 | disposition home or self-care (01) ==
LOC: ED 14:08
PROVIDERS: Emergency Medicine
DX: F10.121 Alcohol abuse with intoxication delirium (principal); F12.90 Cannabis use, unspecified, uncomplicated; E11.9 Type 2 diabetes mellitus without complications
CPT/HCPCS: G0480; J1200; J2060; J2405; J2765; Q0092; Q0162

== ENCOUNTER 2017-10-08 20:14 | Emergency (ER) | payer OTHER ==
[2017-10-08 20:15] VITALS: BP 138/85
== END 2017-10-08 20:39 | disposition home or self-care (01) ==
LOC: ED 20:14
DX: F10.129 Alcohol abuse with intoxication, unspecified (principal); E11.9 Type 2 diabetes mellitus without complications

== ENCOUNTER 2017-10-20 18:09 | Inpatient (IN) | payer OTHER ==
[~2017-10-20] VITALS: Ht 182.9 cm; Wt 108.0 kg
[2017-10-20 23:59] LABS: BASOPHIL % 0.3 % (0-2); PLATELET COUNT 384 x10^3mcL (130-400); RED CELL DISTRIBUTION WIDTH 14.3 % (11.5-14.5)
[2017-10-21 00:08] LABS: CALCIUM 9.4 mg/dL (8.5-10.1); CARBON DIOXIDE 28.9 mmol/L (21-32); CHLORIDE SERUM 97 mmol/L (98-107); CREATININE SERUM 1.1 mg/dL (0.7-1.3); GFR1 > 60 mL/min; GLUCOSE SERUM 107 mg/dL (74-106); POTASSIUM SERUM 3.8 mmol/L (3.5-5.1); SODIUM SERUM 141 mmol/L (136-145)
[2017-10-21 00:12] LABS: ALBUMIN 4.4 g/dL (3.4-5.0); ALKALINE PHOSPHATASE 61 U/L (46-116); ALT/SGPT 42 U/L (16-63); AST/SGOT 23 U/L (15-37); BILIRUBIN TOTAL 0.6 mg/dL (0.20-1.00); LIPASE 91 IU/L (73-393); MAGNESIUM 2.1 mg/dL (1.8-2.4)
[2017-10-21 00:13] LABS: TOTAL PROTEIN, SERUM 8.3 g/dL (6.4-8.2)
[2017-10-21 01:49] LABS: AMPHETAMINE QUAL UR NONE DETECTED (NEG <=1000)
[2017-10-21 17:54] LABS: microscopic required? YES; urine erythrocyte NEGATIVE (NEGATIVE)
[2017-10-21 18:10] LABS: PHOSPHOROUS 5.6 mg/dL (2.5-4.9)
[2017-10-21] MEDS ORDERED: TRAZODONE50 M1 PO (18:42)
[2017-10-21 19:37] VITALS: BP 131/81
[2017-10-21 19:43] VITALS: Ht 182.9 cm; Wt 108.0 kg
[2017-10-22 06:10] VITALS: BP 121/71
[2017-10-22 07:26] LABS: CALCIUM 8.8 mg/dL (8.5-10.1); CARBON DIOXIDE 27.1 mmol/L (21-32); CHLORIDE SERUM 103 mmol/L (98-107); GFR1 > 60 mL/min; GLUCOSE SERUM 117 mg/dL (74-106); MAGNESIUM 2.2 mg/dL (1.8-2.4); PHOSPHOROUS 3.8 mg/dL (2.5-4.9); POTASSIUM SERUM 4.4 mmol/L (3.5-5.1); SODIUM SERUM 141 mmol/L (136-145)
[2017-10-22 07:31] LABS: PLATELET COUNT 286 x10^3mcL (130-400); RED CELL DISTRIBUTION WIDTH 14.3 % (11.5-14.5)
[2017-10-22 09:20] VITALS: BP 114/72
[2017-10-22 15:12] VITALS: BP 121/79
[2017-10-22 21:28] VITALS: BP 126/77
[2017-10-23 05:50] VITALS: BP 114/74
[2017-10-23 06:27] LABS: BASOPHIL % 1.1 % (0-2); PLATELET COUNT 293 x10^3mcL (130-400); RED CELL DISTRIBUTION WIDTH 13.9 % (11.5-14.5)
[2017-10-23 06:42] LABS: CALCIUM 8.7 mg/dL (8.5-10.1); CHLORIDE SERUM 104 mmol/L (98-107); CREATININE SERUM 0.8 mg/dL (0.7-1.3); GFR1 > 60 mL/min; GLUCOSE SERUM 96 mg/dL (74-106); MAGNESIUM 2.1 mg/dL (1.8-2.4); PHOSPHOROUS 5.1 mg/dL (2.5-4.9); POTASSIUM SERUM 4.3 mmol/L (3.5-5.1); SODIUM SERUM 139 mmol/L (136-145)
[2017-10-23 10:40] VITALS: BP 107/81
[2017-10-23 17:11] VITALS: BP 115/56
[2017-10-23 21:20] VITALS: BP 121/69
[2017-10-24 05:57] VITALS: BP 112/65
[2017-10-24 07:07] LABS: CARBON DIOXIDE 28.1 mmol/L (21-32); CHLORIDE SERUM 101 mmol/L (98-107); GFR1 > 60 mL/min; GLUCOSE SERUM 89 mg/dL (74-106); MAGNESIUM 2.1 mg/dL (1.8-2.4); PHOSPHOROUS 4.8 mg/dL (2.5-4.9); POTASSIUM SERUM 4.1 mmol/L (3.5-5.1); SODIUM SERUM 139 mmol/L (136-145)
[2017-10-24 07:34] LABS: BASOPHIL % 0.9 % (0-2); PLATELET COUNT 304 x10^3mcL (130-400); RED CELL DISTRIBUTION WIDTH 13.5 % (11.5-14.5)
[2017-10-24 10:13] VITALS: BP 118/78
[2017-10-24] MEDS ORDERED: ATIVAN2 MG PO (10:29)
[2017-10-24 12:40] VITALS: BP 118/78
[2017-10-24] MEDS ORDERED: FOL1 PO (13:50)
[2017-10-24] MEDS ORDERED: THERA TABS1 TAB PO (13:50)
[2017-10-24] MEDS ORDERED: THI100 PO (13:50)
== END 2017-10-24 14:55 | disposition home or self-care (01) | DRG 775 ==
LOC: ED 18:09 → DU 10-21 17:16 → MU 10-21 17:16 → DU 10-21 17:16 → MU 10-24 09:08
PROVIDERS: Emergency Medicine; Family Medicine
DX: F10.239 Alcohol dependence with withdrawal, unspecified (principal); N17.0 Acute kidney failure with tubular necrosis; G92 Toxic encephalopathy; F33.2 Major depressive disorder, recurrent severe without psychotic features; R80.9 Proteinuria, unspecified; E83.39 Other disorders of phosphorus metabolism; T51.0X2A Toxic effect of ethanol, intentional self-harm, initial encounter; E87.8 Other disorders of electrolyte and fluid balance, not elsewhere classified; R45.851 Suicidal ideations; Z68.32 Body mass index [BMI] 32.0-32.9, adult; F17.210 Nicotine dependence, cigarettes, uncomplicated; E11.9 Type 2 diabetes mellitus without complications; F41.9 Anxiety disorder, unspecified; K29.00 Acute gastritis without bleeding; F10.229 Alcohol dependence with intoxication, unspecified; Y90.9 Presence of alcohol in blood, level not specified; E66.9 Obesity, unspecified; I70.209 Unspecified atherosclerosis of native arteries of extremities, unspecified extremity
CPT/HCPCS: 82962; G0480; J2060; J2405; J3411; J3475; J3490; J7030; Q0162

== ENCOUNTER 2017-10-25 22:16 | Emergency (ER) | payer OTHER ==
[~2017-10-25] VITALS: Ht 172.7 cm; Wt 106.6 kg
[~2017-10-25 22:16] MED LIST changes: +ATIVAN2 MG PO; +THERA TABS1 TAB PO; +TRAZODONE50 M1 PO
[2017-10-25 22:47] VITALS: Ht 172.7 cm; Wt 106.6 kg
[2017-10-26 00:21] LABS: BASOPHIL % 0.7 % (0-2); RED CELL DISTRIBUTION WIDTH 14.3 % (11.5-14.5)
[2017-10-26 00:38] LABS: PLATELET COUNT 461 x10^3mcL (130-400)
[2017-10-26 00:40] LABS: CARBON DIOXIDE 26.7 mmol/L (21-32); CHLORIDE SERUM 102 mmol/L (98-107); CREATININE SERUM 0.9 mg/dL (0.7-1.3); GFR1 > 60 mL/min; GLUCOSE SERUM 143 mg/dL (74-106); POTASSIUM SERUM 3.9 mmol/L (3.5-5.1); SODIUM SERUM 140 mmol/L (136-145)
[2017-10-26 00:52] LABS: ALBUMIN 4.2 g/dL (3.4-5.0); ALKALINE PHOSPHATASE 69 U/L (46-116); ALT/SGPT 73 U/L (16-63); AST/SGOT 43 U/L (15-37); BILIRUBIN TOTAL 0.6 mg/dL (0.20-1.00); FREE T4 0.86 ng/dL (0.76-1.46); TOTAL PROTEIN, SERUM 7.9 g/dL (6.4-8.2)
[2017-10-26 01:07] LABS: AMPHETAMINE QUAL UR NONE DETECTED (NEG <=1000)
[2017-10-26 13:34] VITALS: BP 104/64
== END 2017-10-26 13:34 | disposition home or self-care (01) ==
LOC: ED 22:16
PROVIDERS: Emergency Medicine
DX: F10.129 Alcohol abuse with intoxication, unspecified (principal); R45.851 Suicidal ideations
CPT/HCPCS: 36415; 84439; G0480; Q0162

== ENCOUNTER 2017-10-27 18:01 | Inpatient (IN) | payer OTHER ==
[~2017-10-27] VITALS: Ht 182.9 cm; Wt 109.8 kg
[2017-10-27 18:21] VITALS: Ht 182.9 cm; Wt 109.8 kg
[2017-10-27 19:14] LABS: RED CELL DISTRIBUTION WIDTH 13.9 % (11.5-14.5)
[2017-10-27 19:18] LABS: CALCIUM 7.4 mg/dL (8.5-10.1); CARBON DIOXIDE 27.2 mmol/L (21-32); CHLORIDE SERUM 104 mmol/L (98-107); CREATININE SERUM 0.9 mg/dL (0.7-1.3); GFR1 > 60 mL/min; GLUCOSE SERUM 161 mg/dL (74-106); POTASSIUM SERUM 3.7 mmol/L (3.5-5.1); SODIUM SERUM 143 mmol/L (136-145)
[2017-10-27 19:23] LABS: ALBUMIN 3.6 g/dL (3.4-5.0); ALKALINE PHOSPHATASE 80 U/L (46-116); BILIRUBIN TOTAL 0.46 mg/dL (0.20-1.00); MAGNESIUM 1.9 mg/dL (1.8-2.4); TOTAL PROTEIN, SERUM 6.7 g/dL (6.4-8.2)
[2017-10-27 19:24] LABS: PLATELET COUNT 430 x10^3mcL (130-400)
[2017-10-27 19:42] LABS: ALT/SGPT 311 U/L (16-63); AST/SGOT 212 U/L (15-37)
[2017-10-27 21:12] LABS: AMPHETAMINE QUAL UR NONE DETECTED (NEG <=1000)
[2017-10-28 09:27] VITALS: BP 137/88
[2017-10-28 11:11] VITALS: BP 123/73
[2017-10-28 11:30] LABS: AMYLASE 44 U/L (25-115); LIPASE 147 IU/L (73-393); MAGNESIUM 1.7 mg/dL (1.8-2.4); PHOSPHOROUS 1.6 mg/dL (2.5-4.9)
[2017-10-28 11:32] LABS: CHOLESTEROL 113 mg/dL (<200); CHOLESTEROL/HDL RATIO 6.6; HDL CHOLESTEROL 17 mg/dL (40-60); TRIGLYCERIDES 612 mg/dL (<150)
[2017-10-28 11:39] LABS: T3 TOTAL 0.81 ng/mL
[2017-10-28 11:54] LABS: BASOPHIL % 0.9 % (0-2); PLATELET COUNT 322 x10^3mcL (130-400); RED CELL DISTRIBUTION WIDTH 13.6 % (11.5-14.5)
[2017-10-28 12:29] LABS: FREE T4 0.89 ng/dL (0.76-1.46); FREE THYROXINE INDEX 2.3 ug/dL (1.4-4.5); T4(THYROXINE) 5.7 ug/dL (4.7-13.3)
[2017-10-28 12:34] LABS: CALCIUM 7.9 mg/dL (8.5-10.1); CARBON DIOXIDE 26.9 mmol/L (21-32); CHLORIDE SERUM 102 mmol/L (98-107); CREATININE SERUM 0.8 mg/dL (0.7-1.3); GFR1 > 60 mL/min; GLUCOSE SERUM 104 mg/dL (74-106); POTASSIUM SERUM 3.6 mmol/L (3.5-5.1); SODIUM SERUM 140 mmol/L (136-145)
[2017-10-28 15:09] VITALS: BP 117/90
[2017-10-28 19:45] VITALS: BP 134/82
[2017-10-28 19:59] LABS: microscopic required? NO; urine erythrocyte NEGATIVE (NEGATIVE)
[2017-10-28 20:15] LABS: AMPHETAMINE QUAL UR NONE DETECTED (NEG <=1000)
[2017-10-28 23:17] VITALS: BP 130/85
[2017-10-29 04:02] VITALS: BP 105/62
[2017-10-29 05:50] LABS: CALCIUM 7.8 mg/dL (8.5-10.1); CARBON DIOXIDE 27.7 mmol/L (21-32); CHLORIDE SERUM 105 mmol/L (98-107); CREATININE SERUM 0.8 mg/dL (0.7-1.3); GFR1 > 60 mL/min; GLUCOSE SERUM 95 mg/dL (74-106); MAGNESIUM 1.6 mg/dL (1.8-2.4); PHOSPHOROUS 3.4 mg/dL (2.5-4.9); POTASSIUM SERUM 3.8 mmol/L (3.5-5.1); SODIUM SERUM 142 mmol/L (136-145)
[2017-10-29 07:08] LABS: BASOPHIL % 1.1 % (0-2); PLATELET COUNT 285 x10^3mcL (130-400); RED CELL DISTRIBUTION WIDTH 13.8 % (11.5-14.5)
[2017-10-29 07:36] VITALS: BP 133/97
[2017-10-29 11:47] VITALS: BP 141/84
[2017-10-29 16:00] VITALS: BP 127/89
[2017-10-29 18:32] VITALS: BP 150/95
[2017-10-29 21:11] VITALS: BP 132/81
[2017-10-30 05:24] VITALS: BP 146/90
[2017-10-30 06:34] LABS: CALCIUM 8.5 mg/dL (8.5-10.1); CARBON DIOXIDE 30.3 mmol/L (21-32); CHLORIDE SERUM 105 mmol/L (98-107); CREATININE SERUM 0.8 mg/dL (0.7-1.3); GFR1 > 60 mL/min; GLUCOSE SERUM 91 mg/dL (74-106); PHOSPHOROUS 3.9 mg/dL (2.5-4.9); POTASSIUM SERUM 3.9 mmol/L (3.5-5.1); SODIUM SERUM 143 mmol/L (136-145)
[2017-10-30 06:48] LABS: BASOPHIL % 0.6 % (0-2); PLATELET COUNT 286 x10^3mcL (130-400); RED CELL DISTRIBUTION WIDTH 13.5 % (11.5-14.5)
[2017-10-30 08:41] VITALS: BP 123/74
[2017-10-30] MEDS ORDERED: LIB10 PO (10:37)
[2017-10-30 10:59] VITALS: BP 123/74
[2017-10-30] MEDS ORDERED: ATIVAN1 MG PO (11:59)
== END 2017-10-30 16:06 | disposition home or self-care (01) | DRG 812 ==
LOC: ED 18:01 → IC 10-28 07:29 → DU 10-29 18:26
PROVIDERS: Emergency Medicine; Family Medicine
DX: T43.212A Poisoning by selective serotonin and norepinephrine reuptake inhibitors, intentional self-harm, initial encounter (principal); G92 Toxic encephalopathy; R45.851 Suicidal ideations; F33.9 Major depressive disorder, recurrent, unspecified; F10.129 Alcohol abuse with intoxication, unspecified; Y92.018 Other place in single-family (private) house as the place of occurrence of the external cause; F41.8 Other specified anxiety disorders; F17.200 Nicotine dependence, unspecified, uncomplicated; E83.39 Other disorders of phosphorus metabolism; M25.512 Pain in left shoulder; E78.1 Pure hyperglyceridemia; I70.203 Unspecified atherosclerosis of native arteries of extremities, bilateral legs
CPT/HCPCS: 83880; 84439; 90658; G0480; J2060; J2405; J3411; J3486; J7030; Q0092

== ENCOUNTER 2018-05-29 13:31 | Emergency (ER) | payer OTHER ==
[~2018-05-29] VITALS: Ht 182.9 cm; Wt 104.3 kg
[~2018-05-29 13:31] MED LIST changes: +LIB10 PO
[2018-05-29 13:58] VITALS: Ht 182.9 cm; Wt 104.3 kg
[2018-05-29 18:38] VITALS: BP 128/71
== END 2018-05-29 18:38 | disposition home or self-care (01) ==
LOC: ED 13:31
DX: F10.129 Alcohol abuse with intoxication, unspecified (principal); S62.613A Displaced fracture of proximal phalanx of left middle finger, initial encounter for closed fracture; E11.9 Type 2 diabetes mellitus without complications; X58.XXXA Exposure to other specified factors, initial encounter; Y93.89 Activity, other specified; Y92.89 Other specified places as the place of occurrence of the external cause; Y99.8 Other external cause status
CPT/HCPCS: J3411; J3490; J7030; Q0092

== ENCOUNTER 2018-05-31 12:50 | Inpatient (IN) | payer OTHER ==
[~2018-05-31] VITALS: Ht 182.9 cm; Wt 112.1 kg
[2018-05-31 13:05] VITALS: Ht 182.9 cm; Wt 112.1 kg
[2018-05-31 13:34] LABS: BASOPHIL % 0.7 % (0-2); PLATELET COUNT 365 x10^3mcL (130-400); RED CELL DISTRIBUTION WIDTH 13.6 % (11.5-14.5)
[2018-05-31 13:40] LABS: CALCIUM 8.3 mg/dL (8.5-10.1); CARBON DIOXIDE 31.1 mmol/L (21-32); CHLORIDE SERUM 104 mmol/L (98-107); CREATININE SERUM 0.8 mg/dL (0.7-1.3); GFR1 > 60 mL/min; GLUCOSE SERUM 114 mg/dL (74-106); POTASSIUM SERUM 3.8 mmol/L (3.5-5.1); SODIUM SERUM 143 mmol/L (136-145)
[2018-05-31 13:47] LABS: ALBUMIN 4.1 g/dL (3.4-5.0); ALKALINE PHOSPHATASE 89 U/L (46-116); ALT/SGPT 226 U/L (16-63); AST/SGOT 109 U/L (15-37); BILIRUBIN TOTAL 0.5 mg/dL (0.20-1.00); TOTAL PROTEIN, SERUM 7.8 g/dL (6.4-8.2)
[2018-05-31 15:27] VITALS: BP 119/84
[2018-05-31 17:28] VITALS: BP 120/77
[2018-05-31 20:24] VITALS: BP 137/100
[2018-06-01 05:21] VITALS: BP 131/93
[2018-06-01 07:50] LABS: microscopic required? NO
[2018-06-01 08:48] LABS: urine erythrocyte NEGATIVE (NEGATIVE)
[2018-06-01 08:55] VITALS: BP 129/82
[2018-06-01 09:01] LABS: AMPHETAMINE QUAL UR NONE DETECTED (See below)
[2018-06-01 12:35] VITALS: BP 138/93
[2018-06-01 15:57] VITALS: BP 138/93
== END 2018-06-01 17:00 | disposition home or self-care (01) | DRG 52 ==
LOC: ED 12:50 → DU 14:25 → MU 06-01 15:14
PROVIDERS: Emergency Medicine
DX: G93.41 Metabolic encephalopathy (principal); K70.10 Alcoholic hepatitis without ascites; E11.9 Type 2 diabetes mellitus without complications; F10.129 Alcohol abuse with intoxication, unspecified; Y90.8 Blood alcohol level of 240 mg/100 ml or more; R74.0 Nonspecific elevation of levels of transaminase and lactic acid dehydrogenase [LDH]; Z91.048 Other nonmedicinal substance allergy status; F41.9 Anxiety disorder, unspecified; F32.9 Major depressive disorder, single episode, unspecified; Z83.49 Family history of other endocrine, nutritional and metabolic diseases; Z81.1 Family history of alcohol abuse and dependence
CPT/HCPCS: G0480; J1630; J2060; J2270; J2550; J3490; Q0092

== ENCOUNTER 2018-07-01 18:03 | Emergency (ER) | payer OTHER ==
[2018-07-01 18:19] VITALS: Ht 182.9 cm
[2018-07-01 19:19] LABS: BASOPHIL % 0.5 % (0-2); PLATELET COUNT 416 x10^3mcL (130-400); RED CELL DISTRIBUTION WIDTH 13.3 % (11.5-14.5)
[2018-07-01 19:24] LABS: CARBON DIOXIDE 24.3 mmol/L (21-32); CHLORIDE SERUM 105 mmol/L (98-107); CREATININE SERUM 0.8 mg/dL (0.7-1.3); GFR1 > 60 mL/min; GLUCOSE SERUM 95 mg/dL (74-106); POTASSIUM SERUM 3.4 mmol/L (3.5-5.1); SODIUM SERUM 140 mmol/L (136-145)
[2018-07-01 19:29] LABS: ALBUMIN 4.1 g/dL (3.4-5.0); ALKALINE PHOSPHATASE 70 U/L (46-116); BILIRUBIN TOTAL 0.43 mg/dL (0.20-1.00); LIPASE 158 IU/L (73-393)
[2018-07-01 19:31] LABS: TOTAL PROTEIN, SERUM 8.7 g/dL (6.4-8.2)
[2018-07-01 19:56] LABS: ALT/SGPT 47 U/L (16-63); AST/SGOT 30 U/L (15-37)
[2018-07-01 20:48] VITALS: BP 132/83
== END 2018-07-01 20:48 | disposition home or self-care (01) ==
LOC: ED 18:03
PROVIDERS: Emergency Medicine
DX: R10.32 Left lower quadrant pain (principal); E11.9 Type 2 diabetes mellitus without complications; F41.9 Anxiety disorder, unspecified
CPT/HCPCS: J1885; J2550; J7030

== ENCOUNTER 2018-07-02 16:26 | Emergency (ER) | payer OTHER ==
[~2018-07-02] VITALS: Ht 182.9 cm; Wt 113.4 kg
[2018-07-02 16:34] VITALS: Ht 182.9 cm; Wt 113.4 kg
[2018-07-02 17:57] LABS: BASOPHIL % 0.4 % (0-2); PLATELET COUNT 430 x10^3mcL (130-400); RED CELL DISTRIBUTION WIDTH 13.8 % (11.5-14.5)
[2018-07-02 19:09] LABS: AMPHETAMINE QUAL UR NONE DETECTED (See below)
[2018-07-02 19:28] VITALS: BP 111/81
== END 2018-07-02 21:30 | disposition left against medical advice (07) ==
LOC: ED 16:26
PROVIDERS: Emergency Medicine
DX: F10.129 Alcohol abuse with intoxication, unspecified (principal); E11.9 Type 2 diabetes mellitus without complications; F41.9 Anxiety disorder, unspecified; F32.9 Major depressive disorder, single episode, unspecified; F17.210 Nicotine dependence, cigarettes, uncomplicated
CPT/HCPCS: G0480; J1885; J2405; J3490; J7030

== ENCOUNTER 2018-07-05 09:59 | Emergency (ER) | payer OTHER ==
[~2018-07-05] VITALS: Ht 182.9 cm; Wt 108.9 kg
[2018-07-05 10:09] VITALS: Ht 182.9 cm; Wt 108.9 kg
[2018-07-05 11:16] VITALS: BP 135/78
== END 2018-07-05 11:16 | disposition home or self-care (01) ==
LOC: ED 09:59
DX: R10.13 Epigastric pain (principal); R11.2 Nausea with vomiting, unspecified; R19.7 Diarrhea, unspecified; E11.9 Type 2 diabetes mellitus without complications
CPT/HCPCS: J2270